=== PATIENT | male | born 1990 | race Caucasian/White ===

== ENCOUNTER 2017-04-05 19:06 | Emergency (ER) | payer OTHER ==
--- NOTE | 2017-04-05 20:29 | UC ---
Skin Complaint HPI - HPI Summary HPI Summary: RIGHT LEG WOUND X 12 DAYS S/P FALL ON HIS RIGHT SIDE 12 DAYS AGO , SEVER ABRASION OF THE RIGHT LEG THE AREA IS SWOLLEN , RED, NO PAIN , NO NUMBNESS OF THE LOWER EXT. - History of Current Complaint Time Seen by Provider: 04/05/17 20:11 Stated Complaint: RIGHT LEG COMPLAINT Hx Obtained From: Patient Onset/Duration: Gradual Onset, Lasting Days - 12, Still Present Timing: Constant Onset Severity: Moderate Current Severity: Moderate Character: Swelling, Redness, Raised Aggravating Factor(s): Nothing Alleviating Factor(s): Nothing Associated Signs & Symptoms: Negative: Nausea, Vomiting, Numbness, Fever, Chills Review of Systems Constitutional: Negative Eyes: Negative ENT: Negative Respiratory: Negative Is Patient Immunocompromised?: No All Other Systems Reviewed And Are Negative: Yes PMH/Surg Hx/FS Hx/Imm Hx Previously Healthy: Yes - Family History Known Family History: Negative: Diabetes Physical Exam Triage Information Reviewed: Yes Appearance: Well-Appearing, No Pain Distress, Well-Nourished Vital Signs Reviewed: Yes Eyes: Positive: Conjunctiva Clear ENT: Positive: Normal ENT inspection, Hearing grossly normal, Pharynx normal Neck exam: Normal Neck: Positive: Supple, Nontender, No Lymphadenopathy Respiratory: Positive: Chest non-tender, Lungs clear, Normal breath sounds Cardiovascular: Positive: RRR, No Murmur, Pulses Normal Abdominal Exam: Normal Neurological Exam: Normal Skin: Positive: Other - RIGHT LOWER LEG: + ABRASION , ERYTHEMA, SWELLING, NO SIGNIFICANT TENDERNESS NO CALF TENDERNESS, NORMAL DISTAL PULSES Course/Dx - Diagnoses Provider Diagnoses: ABRASION RIGHT LEG. CELLULITIS RIGHT LEG Discharge - Discharge Plan Condition: Stable Disposition: HOME Prescriptions: Amoxicillin/Clavulanate TAB* [Augmentin TAB 875*] 875 mg PO BID #[id number] tab Patient Education Materials: Wound Infection (ED) Referrals: Chema Mullins [Primary Care Provider] - 5 Days
[2017-04-05 20:30] VITALS: BP 179/100
[2017-04-05] MEDS ORDERED: Tetan/Diph/Pertus SYR(Tdap)* 0.5 ML SYR(BOOSTRIX) use SYR IM ONE (20:35)
[2017-04-05] MEDS ORDERED: Amoxicillin/Clavulanate TAB* 875 MG PO ONE (20:53)
== END 2017-04-05 21:16 | disposition home or self-care (01) ==
LOC: UCCORT 19:06
DX: S80.811A Abrasion, right lower leg, initial encounter (principal); L03.115 Cellulitis of right lower limb; W19.XXXA Unspecified fall, initial encounter; Y92.9 Unspecified place or not applicable
CPT/HCPCS: 90471; 90715; 99202; A9270-GY; G0463

== ENCOUNTER 2018-06-25 17:35 | Emergency (ER) | payer OTHER ==
[2018-06-25 19:13] VITALS: BP 138/88
--- NOTE | 2018-06-25 19:36 | UC ---
Hand/Wrist HPI - HPI Summary HPI Summary: The patient is a 28-year-old male that around 1 AM on June 04 of this year noticed right arm paresthesias. He states it feels like a muscle cramp extending down from his lateral upper arm to his wrist. He has also had some mild numbness. He denies any headache or neck pain. He states that at times his arm feels weak. Symptoms have been constant but tender wax and wane. A lot of time on his computer both at work and at home. - History Of Current Complaint Chief Complaint: UCUpperExtremity Stated Complaint: NUMBNESS IN RIGHT HAND AND ARM Time Seen by Provider: 06/25/18 19:16 Hx Obtained From: Patient Onset/Duration: Gradual Onset, Lasting Weeks Severity Initially: Moderate Severity Currently: Mild Pain Intensity: 0 Pain Scale Used: 0-10 Numeric Character Of Pain: Aching Aggravating Factor(s): Movement Alleviating Factor(s): Nothing Associated Signs And Symptoms: Positive: Weakness - slight, Numbness/Tingling - no tingling. Negative: Swelling, Redness, Bruising, Fever Related History: Dominant Hand Right - Allergies/Home Medications Allergies/Adverse Reactions: Allergies Allergy/AdvReac Type Severity Reaction Status Date / Time No Known Allergies Allergy Verified 06/25/18 19:03 Home Medications: Home Medications NK [No Home Medications Reported] 06/25/18 [History Confirmed 06/25/18] PMH/Surg Hx/FS Hx/Imm Hx Previously Healthy: Yes - Surgical History Surgical History: Yes Surgery Procedure, Year, and Place: tonsils - Family History Known Family History: Positive: Other - [place] Negative: Cardiac Disease, Hypertension, Diabetes - Social History Alcohol Use: Rare Substance Use Type: None Smoking Status (MU): Never Smoked Tobacco - Immunization History Most Recent Tetanus Shot: unknown Review of Systems All Other Systems Reviewed And Are Negative: Yes Constitutional: Positive: Negative Skin: Positive: Negative Eyes: Positive: Negative ENT: Positive: Negative Respiratory: Positive: Negative Cardiovascular: Positive: Negative Gastrointestinal: Positive: Negative Genitourinary: Positive: Negative Motor: Positive: Weakness Neurovascular: Positive: Negative Musculoskeletal: Positive: Negative Neurological: Positive: Numbness Psychological: Positive: Negative Physical Exam Triage Information Reviewed: Yes Appearance: Well-Appearing, No Pain Distress, Well-Nourished Vital Signs: Initial Vital Signs Temp 97.8 F 06/25/18 19:03 Pulse 75 06/25/18 19:03 Resp 18 06/25/18 19:03 BP 138/88 06/25/18 19:03 Pulse Ox 100 06/25/18 19:03 Vital Signs Reviewed: Yes Eyes: Positive: Conjunctiva Clear, Other: - eomi/perrl, fundi benign ENT: Positive: Hearing grossly normal. Negative: Nasal congestion, Nasal drainage, Trismus, Muffled voice, Hoarse voice Neck: Positive: Supple, Nontender, No Lymphadenopathy Respiratory: Positive: Lungs clear, Normal breath sounds, No respiratory distress, No accessory muscle use Cardiovascular: Positive: RRR, No Murmur Musculoskeletal: Positive: ROM Intact, No Edema, Other: - -tinels, - phalens Neurological: Positive: Alert, Muscle Tone Normal, Other: - GCS 15/15, CN2-12 intact, strenght 5/5, FNF normal, no pronator drift, normal gait Psychological Exam: Normal Skin Exam: Normal Hand/Wrist Course/Dx - Differential Dx/Diagnosis Provider Diagnosis: Paresthesia of right arm, Elevated BP without diagnosis of hypertension Discharge - Sign-Out/Discharge Documenting (check all that apply): Patient Departure All imaging exams completed and their final reports reviewed: No Studies - Discharge Plan Condition: Stable Disposition: HOME Patient Education Materials: Paresthesia (ED) Referrals: No Primary Care Phys,NOPCP [Primary Care Provider] - Additional Instructions: You need to find a doctor to fully evaluate your symptoms blood work is pending to ER for new or worsening symptoms your BP is in the prehypertensive range and needs following - Billing Disposition and Condition Condition: STABLE Disposition: Home
[2018-06-26 11:00] LABS: ABS Basophils 0.1 10^3/ul (0-0.2); ABS Eosinophils 0.1 10^3/ul (0-0.6); ABS Lymphocytes 1.7 10^3/ul (1.0-4.8); ABS Monocytes 0.4 10^3/ul (0-0.8); ABS Neutrophils 4.3 10^3/ul (1.5-7.7); ABS Nucleated RBC 0 10^3/ul; Eosinophil % 2.2 %; Hematocrit 47 % (42-52); Lymphocyte % 26.2 %; Mean Corpuscular HGB Conc 34 g/dl (31-36); Mean Corpuscular Hemoglobin 30 pg (27-31); Mean Corpuscular Volume 88 fL (80-94); Nucleated Red Blood Cells % 0.1; Platelet Count 288 10^3/ul (150-450); Red Blood Count 5.31 10^6/ul (4.00-5.40); Red Cell Distribution Width 13 % (10.5-15); White Blood Count 6.6 10^3/ul (3.5-10.8)
[2018-06-26 11:05] LABS: Albumin 4.9 g/dL (3.2-5.2); Calcium 10.1 mg/dL (8.6-10.3); Potassium 4.4 mmol/L (3.5-5.0); Total Bilirubin 0.9 mg/dL (0.2-1.0)
[2018-06-26 11:11] LABS: Albumin/Globulin Ratio 2.1 (1-3); BUN/Creatinine Ratio 13.3 (8-20); EGFR African American 121.6 (>60); EGFR Non-African American 100.5 (>60); Globulin 2.3 g/dL (2-4); Total Protein 7.2 g/dL (6.4-8.9)
[2018-06-26 11:32] LABS: TSH (Thyroid Stimulating Horm) 2.99 mcIU/mL (0.34-5.60)
[2018-06-26 12:05] LABS: Erythrocyte Sed Rate 3 mm/Hr (0-14)
[2018-06-27 22:54] LABS: Lyme Disease Serology Negative (Negative)
== END 2018-06-25 19:46 | disposition home or self-care (01) ==
LOC: UCCORT 17:35
DX: R20.2 Paresthesia of skin (principal); R03.0 Elevated blood-pressure reading, without diagnosis of hypertension
CPT/HCPCS: 36415; 80053; 84443; 85025; 85652; 86038; 86618; 99211; G0463